=== PATIENT | female | born 1985 | race Caucasian/White ===

== ENCOUNTER 2016-08-04 20:56 | Emergency (ER) | payer MEDICAID, OTHER ==
[~2016-08-04] VITALS: Ht 160 cm; Wt 117.5 kg
[~2016-08-04 20:56] MED LIST: BACTDS PO; CEPH-443 PO; CYCL-319 PO; HYDR-3498 PO; IBUP-1542 PO; LORA10TA3 PO; RANI150T5 PO
[2016-08-04 22:09] VITALS: Ht 160 cm; Wt 117.5 kg
--- NOTE | 2016-08-05 01:18 | RADRPT ---
PROCEDURE: CHEST - 1 VIEW CLINICAL INDICATION: 31-year-old female with cough. TECHNIQUE: A single frontal AP view of the chest was performed. The images were reviewed on a PAC S workstation. COMPARISON: None. FINDINGS: There is a shallow inspiration accentuating the heart size. Accounting for this, the cardiomediasti nal silhouette is within normal limits. There is mild bibasilar subsegmental atelectasis. There is no evidence for an infiltrate. There is no evidence for congestive heart failure. There is no evid ence for pneumothorax. The osseous structures are intact. IMPRESSION: Shallow inspiration with mild bibasilar subsegmental atelectasis. .Toby Leo MD, MD Date Time Electronically viewed and signed by .Toby Leo MD, MD on 08/05/2016 01:17 .[place]/
[2016-08-05] MEDS ORDERED: PRED20TA PO (01:33)
[2016-08-05] MEDS ORDERED: IBUP-1542 PO (01:33)
[2016-08-05 01:43] VITALS: BP 140/82; PULSE 103; RESP 20; TEMP 98.7
--- NOTE | 2016-08-05 01:53 | ERD ---
ER Documentation Chief Complaint Date/Time DATE: 08/05/16 TIME: 01:38 Chief Complaint Fever, cough, colds and body ache x 5 days HPI 31-year-old female presents with chief complaint of productive cough, fever, body aches 5 days. Patient states that she was treated PCP on Monday fever prescription for Augmentin, she is unaware what the exact diagnosis was. To complaints of fever and chills, and states that she is pain in her chest that is worse with deep inhalations and coughing. She has not seen any improvement in her symptoms since starting Augmentin, she has not finished the dose yet. Associated symptoms include nausea. She denies vomiting, abdominal pain, diarrhea, neck stiffness, ear pain, palpitations, shortness of breath, and difficulty swallowing. She denies any history of cardiac problems. She states that she did have pneumonia once last year. She has been taking Tylenol for relief of her fever and Phenergan for relief of her cough. She saw her PCP again today, who suggested she go to the ER for chest x-ray since her symptoms are not improving. Sick contacts in her home include her children. She denies any recent travel. ROS All systems reviewed and are negative except as per history of present illness. Medications Home Meds Active Scripts Ibuprofen* (Motrin*) 600 Mg Tab, 600 MG PO Q6, #30 TAB Prov:Susu Ratliff PA-C 08/05/16 Prednisone* (Prednisone*) 20 Mg Tab, 40 MG PO DAILY for 4 Days, #8 TAB Prov:Susu Ratliff PA-C 08/05/16 Hydrocodone Bit-Acetaminophen* ([place]*) 5-325 Mg Tab, 1 TAB PO Q6 Y for PAIN, # 20 TAB Prov:NANCY FLOR PA-C 12/20/14 Ibuprofen* (Motrin*) 600 Mg Tab, 600 MG PO Q6H Y for PAIN AND OR ELEVATED TEMP, #30 Prov:NANCY FLOR PA-C 12/20/14 Cephalexin* (Keflex*) 500 Mg Capsule, 500 MG PO QID for 7 Days, CAP Prov:NANCY FLOR PA-C 12/20/14 Sulfamethoxazole-Trimethoprim* (Bactrim* DS) 800-160 Mg Tab, 1 TAB PO BID for 7 Days, TAB Prov:NANCY FLOR PA-C 12/20/14 Reported Medications Ranitidine Hcl* (Ranitidine Hcl*) 150 Mg Tablet, 150 MG PO Q12, TAB 07/24/14 Loratadine* (Loratadine*) 10 Mg Tablet, 10 MG PO DAILY, TAB 07/24/14 Cyclobenzaprine Hcl* (Cyclobenzaprine Hcl*) 10 Mg Tablet, 10 MG PO DAILY Y for MUSCLE SPASMS, TAB 07/24/14 Allergies Allergies: Coded Allergies: No Known Allergy (Unverified , 12/20/14) PMhx/Soc History of Surgery: No Anesthesia Reaction: No Hx Respiratory Disorders: No Hx Cardiac Disorders: No Hx Psychiatric Problems: No Hx Miscellaneous Medical Probl: No Hx Alcohol Use: Yes Hx Substance Use: No Hx Tobacco Use: Yes Smoking Status: Current every day smoker Physical Exam Vitals Vital Signs Date Time Temp Pulse Resp B/P Pulse Ox O2 Delivery O2 Flow Rate FiO2 08/04/16 22:09 99.2 85 18 163/83 99 Physical Exam GENERAL: Non-toxic. No apparent signs of distress. HEENT: Atraumatic. Bilateral eyes are PERRL EOM intact. Normal conjunctiva, no injection. No eyelid or lower eyelid swelling noted. Ears: Normal tympanic membrane, no erythema or bulging. No ear canal swelling. No ear discharge. Nose : no nasal discharge. Throat: Oropharynx normal. Tongue pink and moist. Bilateral tonsillar erythema and edema, no exudate. Uvula is midline, no trismus , no pooling of secretions. No lymphadenopathy. LUNGS: Clear to auscultation. No accessory muscle use. No wheezing, no crackles. No signs or symptoms of respiratory distress. HEART: Regular rate and rhythm. No murmurs, clicks, rubs or gallops. ABDOMEN: Soft, nontender and nondistended. Bowel sounds positive. No rebound or guarding. No gross peritoneal signs. No Pandey or McBurney point tenderness. No gross masses. BACK: No midline tenderness, no costovertebral tenderness. SKIN: There is no apparent rash, petechiae, erythema or swelling. Good skin turgor. Procedures/MDM Patient was sent here by her PCP for chest x-ray, she is unaware what she is given a prescription for Augmentin. However physical exam she has bilateral tonsillar edema and erythema, and stated that she initially only presented with the complaint of sore throat and sinus pain/pressure when she visited her PCP on Monday. Therefore one can assume she is being treated for either pharyngitis or sinusitis. She states that Augmentin has not helped alleviate her symptoms. She is having worsening pain in her chest with deep inhalations and when coughing. On exam she CTAB, she appears to be in no acute distress, and is afebrile. She has a mildly elevated temp of 99.2. A chest x-ray was ordered to rule out pneumonia and pneumothorax. I ordered an EKG as well due to the patient 's complaint of intermittent chest pain. However she states that the pain is only when coughing and during deep inhalations, which leads me to believe that it is not likely to be cardiac related. Patient also denies any history of cardiac problems, therefore she was low risk for acute ischemia. EKG: Rate/Rhythm: Normal Sinus Rhythm with a rate of 73 QRS, ST, T-waves: No changes consistent w/ acute ischemia, normal axis Impression: No evidence of ischemia or arrhythmia Chest x-ray (radiologist interpretation ): Bilateral atelectasis X-ray to the patient that her symptoms may be due to atelectasis and increased mucus production that may cause this. His likely viral in origin since she is not improving with the use of antibiotics, there is no benefit and changing her antibiotic to cover for pulmonary infection as her chest x-ray shows no pneumonia. Patients multiple complaints are likely to be due to viral etiology. On examination there was no tonsillar edema or exudate, TMs were pink/pearly and non-bulging, lungs were CTAB w/o rhonchi or rales, and patient has no meningismus. Appears to be in NAD, vitals are stable. Therefore, I do not believe that any imaging or blood work is warranted. I have explained to the patient that antibiotics are not effective against viral infections, and can further contribute to antibiotic resistance. Patient advised to practice good hand hygiene to prevent spread of viruses. Patient advised to stay hydrated and use the following medications for relief: - Motrin 600mg (do NOT exceed 3200 mg per day) - Prednisone for congestion and worsening cough - Saline nasal mist for nasal dryness - Cepacol Lozenges for sore throat or warm salt water gargles I have a low suspicion for CO, aortic dissection, PE, pneumothorax, pneumonia, TB, strep pharyngitis, peritonsillar abscess, epiglottitis, OM, meningitis, and sepsis. Patient is stable for discharge for and outpatient management at this time. Advised to follow-up with PCP within 1-2 days. Patient is afebrile at time of discharge. Departure Diagnosis: Primary Impression: Upper respiratory infection URI type: unspecified viral URI Qualified Code: J06.9 - Viral upper respiratory tract infection Additional Impression: Flu-like symptoms Condition: Good Patient Instructions: Influenza (Adult) Additional Instructions: Call your primary care doctor TOMORROW for an appointment during the next 1-2 days.See the doctor sooner or return here if your condition worsens before your appointment time. Susu Ratliff PA-C Aug 05, 2016 01:52
== END 2016-08-05 01:44 | disposition home or self-care (01) ==
LOC: FTE 20:56
DX: J06.9 Acute upper respiratory infection, unspecified (principal); R05 Cough; F17.210 Nicotine dependence, cigarettes, uncomplicated
CPT/HCPCS: 71010; 93005; Z7502

== ENCOUNTER 2017-04-12 10:15 | Emergency (ER) | payer MEDICAID, OTHER ==
[~2017-04-12] VITALS: Wt 113.0 kg
[~2017-04-12 10:15] MED LIST changes: +PRED20TA PO
[2017-04-12] MEDS ORDERED: ACETAMINOPHEN 325 MG TAB PO ONE (13:30)
[2017-04-12] MEDS ORDERED: CEFTRIAXONE 1 GM INJ IM ONE (13:30)
[2017-04-12] MEDS ORDERED: LIDOCAINE 1% (MDV) 20 ML INJ SC ONE (13:30)
[2017-04-12] MEDS ORDERED: ONDA8TAB14 PO (13:34)
[2017-04-12] MEDS ORDERED: LEVO500T72 PO (13:34)
--- NOTE | 2017-04-12 13:38 | ERD ---
ER Documentation Chief Complaint Date/Time DATE: 04/12/17 TIME: 13:35 Chief Complaint sore throat, blurry vision , londono, bodyaches HPI 71-year-old female presents with multiple complaints. She has had a sore throat and tactile fevers for the last 4-5 days with productive cough. She had an episode of vomiting some reddish liquid 1 time but she currently has no vomiting or continued symptoms. She was prescribed doxycycline by her primary doctor but gets nausea and throat immediately after taking the medication. She is only taken 2 doses. History significant for pneumonia approximately 1 year ago. She denies any abdominal pain, melanotic stool. She has body aches which worsen with deep breathing and moving. ROS All systems reviewed and are negative except as per history of present illness. Medications Home Meds Active Scripts Ondansetron (Ondansetron Odt) 8 Mg Tab.rapdis, 8 MG PO Q6H Y for NAUSEA AND/OR VOMITING, #8 TAB Prov:ATILIO GALLEGOS MD 04/12/17 Levofloxacin* (Levaquin*) 500 Mg Tablet, 500 MG PO DAILY for 7 Days, TAB Prov:ATILIO GALLEGOS MD 04/12/17 Ibuprofen* (Motrin*) 600 Mg Tab, 600 MG PO Q6, #30 TAB Prov:Susu Ratliff PA-C 08/05/16 Prednisone* (Prednisone*) 20 Mg Tab, 40 MG PO DAILY for 4 Days, #8 TAB Prov:Susu Ratliff PA-C 08/05/16 Hydrocodone Bit-Acetaminophen* ([place]*) 5-325 Mg Tab, 1 TAB PO Q6 Y for PAIN, # 20 TAB Prov:NANCY FLOR PA-C 12/20/14 Ibuprofen* (Motrin*) 600 Mg Tab, 600 MG PO Q6H Y for PAIN AND OR ELEVATED TEMP, #30 Prov:NANCY FLOR PA-C 12/20/14 Cephalexin* (Keflex*) 500 Mg Capsule, 500 MG PO QID for 7 Days, CAP Prov:NANCY FLOR PA-C 12/20/14 Sulfamethoxazole-Trimethoprim* (Bactrim* DS) 800-160 Mg Tab, 1 TAB PO BID for 7 Days, TAB Prov:NANCY FLOR PA-C 12/20/14 Reported Medications Ranitidine Hcl* (Ranitidine Hcl*) 150 Mg Tablet, 150 MG PO Q12, TAB 07/24/14 Loratadine* (Loratadine*) 10 Mg Tablet, 10 MG PO DAILY, TAB 07/24/14 Cyclobenzaprine Hcl* (Cyclobenzaprine Hcl*) 10 Mg Tablet, 10 MG PO DAILY Y for MUSCLE SPASMS, TAB 07/24/14 Allergies Allergies: Coded Allergies: No Known Allergy (Unverified , 12/20/14) PMhx/Soc History of Surgery: No Anesthesia Reaction: No Hx Neurological Disorder: No Hx Respiratory Disorders: No Hx Cardiac Disorders: No Hx Psychiatric Problems: No Hx Miscellaneous Medical Probl: No Hx Alcohol Use: Yes Hx Substance Use: No Hx Tobacco Use: Yes Smoking Status: Current every day smoker Physical Exam Vitals Vital Signs Date Time Temp Pulse Resp B/P Pulse Ox O2 Delivery O2 Flow Rate FiO2 04/12/17 10:26 97.7 74 20 162/94 97 Physical Exam Const: [] Alert, obese, [id number]. Head: Atraumatic Eyes: Normal Conjunctiva ENT: Normal External Ears, Nose and Mouth. TMs and normal. Tonsils 3+ with minimal erythema without exudate and uvula midline and airway patent. Neck: Full range of motion..~ No meningismus. Resp: Clear to auscultation bilaterally no rales or wheezing or retractions.. Cardio: Regular rate and rhythm, no murmurs Abd: Soft, non tender, non distended. Normal bowel sounds Skin: No petechiae or rashes Back: No midline or flank tenderness Ext: No cyanosis, or edema Neur: Awake and alert Psych: Normal Mood and Affect Results 24 hrs Current Medications Medications (Trade) Dose Ordered Sig/[place] Route PRN Reason Start Time Stop Time Status Last Admin Dose Admin Acetaminophen (Tylenol Tab) 650 mg ONCE ONCE PO 04/12/17 13:30 04/12/17 13:31 DC Ceftriaxone Sodium (Rocephin) 1 gm ONCE ONCE IM 04/12/17 13:30 04/12/17 13:31 DC Lidocaine (Xylocaine 1% (Mdv) 20 ml) 20 ml ONCE ONCE SC 04/12/17 13:30 04/12/17 13:31 DC Procedures/MDM Since with productive cough for the last 5 days. She has sore throat as well. She had one time vomiting red liquid but is no current evidence of active bleeding or abdominal pain. Patient was recommended to have a chest x-ray but declined. She is requesting a shot of antibiotics. Given patient request and multiple side effects of medication. She was given Rocephin 1 g IM for treatment for pneumonia although suspicion is low. We will treat with Levaquin , further observation at home, return precautions and primary care follow-up. No evidence of respiratory distress or hypoxemia. Is advised to return for shortness of breath, persistent measurable fevers over 48 hours, persistent vomiting or blood or new or worsening symptoms or abdominal pain. The patient was stable with no new complaints during the ER course. Clinically, there is no current evidence to suggest meningitis, sepsis, acute abdomen, acute coronary syndrome, pulmonary embolism, or any other emergent condition appearing to require further evaluation or hospitalization. The patient should certainly return for any new or worsening symptoms per the aftercare instructions. They should otherwise follow-up with her primary care doctor for reevaluation this week. Departure Diagnosis: Primary Impression: Upper respiratory infection Condition: Stable Patient Instructions: Acute Bronchitis, Pneumonia (Adult) Additional Instructions: Recheck for persistent vomiting, new worsening symptoms. Likely side effects to medication. The viral illness, but we will treat for bronchitis/pneumonia. You have declined x-ray today. Continue Tylenol every 4 hours for body aches. ATILIO GALLEGOS MD Apr 12, 2017 13:38
[2017-04-12 13:53] VITALS: BP 148/89; PULSE 82; RESP 20; TEMP 98.5
== END 2017-04-12 13:54 | disposition home or self-care (01) ==
LOC: FTE 10:15
DX: J06.9 Acute upper respiratory infection, unspecified (principal); F17.210 Nicotine dependence, cigarettes, uncomplicated
CPT/HCPCS: 96372; J0696; Z7502; Z7610

== ENCOUNTER 2017-08-14 19:09 | Emergency (ER) | END 2017-08-14 19:58 | disposition home or self-care (01) ==

== ENCOUNTER 2018-05-03 09:15 | Emergency (ER) | END 2018-05-03 13:57 | disposition home or self-care (01) ==